=== PATIENT | male | born 1950 | race Caucasian/White ===

== ENCOUNTER 2017-03-16 14:26 | Emergency (ER) | payer MEDICARE ==
[~2017-03-16] VITALS: Ht 180.3 cm; Wt 105.5 kg
[~2017-03-16 14:26] MED LIST: AMIO200T PO; AMLO10TA2 PO; ASPI81CH6 CHEW; AUGM875T3 PO; BROV15NE NEB; BUDE0.5S NEB; FURO1TAB60 PO; LEVO125T4 PO; LOSA25TA PO; METF1000 PO; METO100T PO; MULTTAB22 PO; PRAV40TA2 PO; PROT40TA PO; VITA1000 PO; VITA2000 PO; WARF-21 PO; WARF-23 PO
[2017-03-16 14:27] VITALS: BP 136/70; PULSE 50; RESP 16; TEMP 97.9; O2SAT 96
--- NOTE | 2017-03-16 17:15 | PD ---
HPI Chief Complaint: Medical Clearance Time Seen by Provider: 17:00 Travel History International Travel<30 days: No Contact w/Intl Traveler<30days: No Traveled to known affect area: No History of Present Illness HPI This is a 66 year old male who presents to the emergency department with low heart rate. 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 Her care doctor who told him to come to the emergency department. Yesterday his heart rate was 48. He denies any lightheadedness, dizziness, chest pain or shortness of breath. He is on metoprolol and amiodarone at home and has been told he has atrial fibrillation. He follows with Dr. Cates who is his wireline supervisor. He has not discussed his low heart rate with hernia. PFSH Past Medical History Cancer: No Cardiovascular Problems: No Diabetes: Yes Endocrine: No Genitourinary: No Hepatitis: No Hiatal Hernia: No Immune Disorder: No Musculoskeletal: Yes (ARTHRITIS) Neurologic: Yes (BRAIN TUMOR) Psychiatric: No Reproductive: No Respiratory: Yes (COPD) Thyroid Disease: No Past Surgical History Abdominal Surgery: No AICD: No Cardiac Surgery: No Ear Surgery: Yes (RIGHT EAR) Endocrine Surgery: No Eye Surgery: No Genitourinary Surgery: No Gynecologic Surgery: No Joint Replacement: No Oral Surgery: No Pacemaker: No Thoracic Surgery: No Social History Tobacco Use: No Substance Use: No Allergies-Medications (Allergen,Severity, Reaction): Coded Allergies: No Known Allergies (Unverified Adverse Reaction, Unknown, 03/16/17) Reported Meds & Prescriptions Reported Meds & Active Scripts Active Losartan (Losartan Potassium) 25 Mg Tab 25 Mg PO DAILY Lasix (Furosemide) 40 Mg Tab 40 Mg PO DAILY Augmentin (Amoxicillin-Clavulanate) 875-125 Mg Tab 1 Tab PO BID Metoprolol Tartrate 100 Mg Tab 100 Mg PO BID Levothyroxine (Levothyroxine Sodium) 125 Mcg Tab 125 Mcg PO DAILY Amlodipine (Amlodipine Besylate) 10 Mg Tab 10 Mg PO DAILY Budesonide Neb 0.5 Mg/2 Ml Neb 0.5 Mg NEB Q12HR NEB Brovana Neb (Arformoterol Neb) 15 Mcg/2 Ml Vial 1 Nebule NEB BID Maintenance treatment of bronchoconstriction in COPD. Vitamin D-1000 (Cholecalciferol) 1,000 Unit Tab 1,000 Units PO DAILY Multi For Him (Multiple Vitamins W/ Minerals) 1 Tab Tab 1 Tab PO DAILY 30 Days Aspirin Low Dose (Aspirin) 81 Mg Chew 81 Mg CHEW DAILY Metformin (Metformin HCl) 1,000 Mg Tab 1,000 Mg PO BIDPC With meals Reported Vitamin D3 (Cholecalciferol) 2,000 Unit Cap 2,000 Units PO DAILY Amiodarone (Amiodarone HCl) 200 Mg Tab 200 Mg PO DAILY Warfarin 7.5 Mg Tab 7.5 Mg PO MON & FRI Warfarin 5 Mg Tab 5 Mg PO DIRECTED Pravastatin 40 Mg Tab 40 Mg PO DAILY Protonix (Pantoprazole Sodium) 40 Mg Tab 40 Mg PO DAILY Review of Systems Except as stated in HPI: all other systems reviewed are Neg Physical Exam Narrative GENERAL:Well appearing, no acute distress SKIN: Focused skin assessment warm and dry. HEAD: Atraumatic. Normocephalic. EYES: Pupils equal and round. No injection or drainage. ENT: Moist mucous membranes NECK: Trachea midline. CARDIOVASCULAR: Bradycardic. No murmur appreciated. 2+ pitting edema in the right lower extremity, left lower extremity is large and was wrapped by wound care. RESPIRATORY: Clear to auscultation. Breath sounds equal bilaterally. GASTROINTESTINAL: Abdomen soft, non-tender, nondistended. MUSCULOSKELETAL: No obvious deformities. NEUROLOGICAL: Awake and alert. No obvious cranial nerve deficits. Moving all extremities. PSYCHIATRIC: Appropriate mood and affect; insight and judgment normal. 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 His heart rate was 48 at the time. Here his heart rate is in the 50s. He has a normal blood pressure and is completely asymptomatic. He takes 100 mg of metoprolol twice a day. I instructed him to decrease his metoprolol to 50 mg twice a day. He may also need some titration of his amiodarone but I think this needs to be addressed by his primary wireline supervisor. I asked him to please follow up as soon as possible with his wireline supervisor and he has an appointment to get his INR checked tomorrow and he will speak to them then. Otherwise I think patient can safely be discharged home. Diagnosis Primary Impression: Bradycardia, drug induced Patient Instructions: General Instructions Additional Instructions: If you develop severe chest pain, shortness of breath, sweating, lightheadedness , dizziness or difficulty breathing return to the emergency department immediately. Follow-up with your wireline supervisor without fail. Take 50 mg of metoprolol (1/2 a tablet) twice daily until you follow with your wireline supervisor. Med/Other Pt SpecificInfo: Existing Med Changed Disposition: 01 DISCHARGE HOME Condition: Stable Avril Levy MD Mar 16, 2017 17:15
[2017-03-16 17:30] VITALS: BP 135/67; PULSE 50; RESP 16; O2SAT 96
--- NOTE | 2017-03-17 18:21 | EKG ---
Date Performed: 03/16/2017 Time Performed: 16:24:06 PTAGE: 66 years EKG: SINUS BRADYCARDIA MODERATE INTRAVENTRICULAR CONDUCTION DELAY PROLONGED QT INTERVAL ABNORMAL ECG NO PREVIOUS TRACING DOCTOR: Tanvi Bolton Interpretating Date/Time 03/17/2017 18:19:50
== END 2017-03-16 17:32 | disposition home or self-care (01) ==
LOC: NEPD 14:26
DX: R00.1 Bradycardia, unspecified (principal); E11.9 Type 2 diabetes mellitus without complications; J44.9 Chronic obstructive pulmonary disease, unspecified; Z79.01 Long term (current) use of anticoagulants; R94.31 Abnormal electrocardiogram [ECG] [EKG]
CPT/HCPCS: 93005; 99283